=== PATIENT | male | born 1995 | race Caucasian/White ===

== ENCOUNTER 2019-01-25 19:46 | Emergency (ER) | payer BC, OTHER ==
[~2019-01-25] VITALS: Ht 172.7 cm; Wt 63.5 kg
[2019-01-25] MEDS ORDERED: Augmentin 875-1 EACH PO (20:24)
== END 2019-01-25 20:53 | disposition home or self-care (01) ==
LOC: ER 19:46
DX: S61.452A Open bite of left hand, initial encounter (principal); W55.01XA Bitten by cat, initial encounter
CPT/HCPCS: 90471; 90714; 99283-25